=== PATIENT | female | born 1985 | race Caucasian/White ===

== ENCOUNTER 2021-10-11 16:22 | Outpatient (CLI) | payer MEDICAID, SELFPAY ==
[2021-10-11 21:35] LABS: Albumin* 4.1 g/dL (3.3-5.0)
[2021-10-11 21:38] LABS: Alanine Aminotransferase* 22 U/L (4-35); Alkaline Phosphatase* 71 U/L (40-150); Aspartate Amino Transferase* 32 U/L (12-35); Bilirubin Direct* 0.3 mg/dL (0.0-0.5); Bilirubin Total* 0.4 mg/dL (0.1-1.5); Total Protein* 7.3 g/dL (6.0-8.3)
== END 2021-10-11 16:23 | disposition home or self-care (01) ==
LOC: FRMREF 16:24
PROVIDERS: Visit Provider Dermatology
DX: Z79.899 Other long term (current) drug therapy (principal); L40.9 Psoriasis, unspecified
CPT/HCPCS: 80076